=== PATIENT | male | born 1985 | race Caucasian/White ===

== ENCOUNTER 2020-03-23 08:26 | Outpatient (CLI) | payer OTHER ==
--- NOTE | 2020-03-23 10:03 | MRI ---
MRI OF THE RIGHT KNEE WITHOUT CONTRAST: INDICATION: History of acute right knee pain and history of surgery in 2000. COMPARISON: Right knee radiograph dated 02/05/2020. FINDINGS: There is postsurgical change consistent with a prior ACL reconstruction. The ACL graft is completely disrupted. There is some mild degenerative intrasubstance signal seen within the PCL. There is a large cystic abnormality seen along the ACL graft tract of the proximal tibia measuring 4.6 x 2.6 x 3 .1 cm. There is a horizontally oriented tear involving the body of the lateral meniscus with a more horizontally oriented oblique tear seen involving the posterior junction and posterior horn. There is a very complex macerated appearing tear involving the body and posterior horn of the medial meniscus. There is diffuse moderate chondrosis involving the femoral tibial compartments. There are s mall marginal osteophytes affecting the femoral tibial compartments. There is a near full-thickness delaminating articular cartilage tear involving the median patellar ridge and lateral patellar facet measuring 1.4 cm on image 19 of series 3. There are marginal osteophytes affecting the patellofemoral compartment. There is an intraarticular body seen within the lateral aspect of the sup rapatellar pouch measuring 8 mm. No popliteal cyst is evident. The extensor mechanism is intact. The IT band appears within normal limits. The popliteus appears within normal limits. IMPRESSION: 1. No postprocedural change consistent with a prior anterior cruciate ligament reconstruction with co mplete disruption of the anterior cruciate ligament graft. There is moderate mucoid degeneration of the posterior cruciate ligament. 2. 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 Small intra-articular bodies seen within the lateral suprapatellar pouch. Transcribed Date/Time: 03/23/2020 10:32 AM
== END 2020-03-23 08:27 | disposition home or self-care (01) ==
LOC: SCSMRI 08:26
PROVIDERS: ATTEND Family Medicine
DX: M23.91 Unspecified internal derangement of right knee (principal); M17.11 Unilateral primary osteoarthritis, right knee; M23.203 Derangement of unspecified medial meniscus due to old tear or injury, right knee; M23.200 Derangement of unspecified lateral meniscus due to old tear or injury, right knee

== ENCOUNTER 2021-02-22 13:09 | Outpatient (CLI) | payer SELFPAY ==
[2021-02-22 14:45] LABS: #Eosinphils 0.5 10x3/uL (0.0-0.5); #Neutrophils 6.1 10x3/uL (1.5-8.4); %Basophils 0.3 % (0.0-2.0); %Eosinophils 4.9 % (0.0-6.0); %Lymphocytes 22.6 % (18.0-47.0); %Monocytes 10.2 % (0.0-10.0); %Neutrophils 61.6 % (40.0-75.0); Hemoglobin 14.8 g/dL (13.5-17.5); Mean Corpuscular HGB CONC 33.6 g/dL (32.0-36.0); Mean Corpuscular Hemoglobin 29.5 pg (27.0-33.0); Mean Corpuscular Volume 87.8 fl (81.2-95.1); Mean Platelet Volume 11.3 fl (7.4-10.4); Platelet Count 237 10x3/uL (150-450); RBC Distribution Width 12.5 % (11.5-14.5); Red Blood Cell (RBC) Count 5.02 10x6/uL (4.32-5.72); White Blood Cell (WBC) Count 9.9 10x3/uL (3.5-10.5)
[2021-02-22 14:51] LABS: Bilirubin Neg (Negative); Blood, Urine 10 (Negative); Clarity Clear (Clear); Glucose, Urine (Dipstick) Normal (Negative); Ketone, Urine Negative (Negative); Leukocyte Negative (Negative); Nitrite Negative (Negative); Protein, Urine (Dipstick) Negative (Neg-Trace); Specific Gravity, Urine 1.025 (1.002-1.036); Urobilinogen Normal mg/dL (Less than 2)
[2021-02-22 15:00] LABS: INR-International Normal Ratio 0.9; Prothrombin Time 10.5 sec (9.5-12.1)
[2021-02-22 15:02] LABS: Bacteria/HPF None Seen HPF (None Seen); RBC/HPF 0-3 HPF (0-3); Squamous Epithelial None Seen HPF (0-3); WBC/HPF None Seen HPF (0-3)
[2021-02-22 15:02] LABS: Anion Gap 12 mmol/L (10-20); BUN (Urea Nitrogen) 19 mg/dL (8.9-20.6); Calc. Creatinine Clearance 0 mL/min (70-130); Calcium 9.6 mg/dL (7.8-10.44); Carbon Dioxide 25 mmol/L (22-29); Chloride 106 mmol/L (98-107); Glucose 90 mg/dL (70-105); Potassium 3.9 mmol/L (3.5-5.1); Sodium 139 mmol/L (136-145)
[2021-02-23 11:41] LABS: SARS-CoV-2 PCR by NAA Not Detected (NotDetected)
== END 2021-02-22 13:10 | disposition home or self-care (01) ==
LOC: LABBT 13:09
PROVIDERS: ATTEND Orthopaedic Surgery
DX: Z01.818 Encounter for other preprocedural examination (principal); M23.91 Unspecified internal derangement of right knee; M23.621 Other spontaneous disruption of posterior cruciate ligament of right knee; M17.5 Other unilateral secondary osteoarthritis of knee; S83.272A Complex tear of lateral meniscus, current injury, left knee, initial encounter; M23.41 Loose body in knee, right knee; Z20.822 Contact with and (suspected) exposure to COVID-19
CPT/HCPCS: 80048; 81001; 85025; 85610; 86850; 86900; 86901; 87081; 93005; 93010; U0003; U0005

== ENCOUNTER 2021-02-27 | Inpatient (IN) | payer OTHER | END 2021-03-03 12:00 | disposition home or self-care (01) | DRG 470 | PROVIDERS: ADMIT Orthopaedic Surgery | PROC: 0SRC0J9 Replacement of Right Knee Joint with Synthetic Substitute, Cemented, Open Approach (ICD-10-PCS; principal; 2021-02-27) ==